=== PATIENT | female | born 1965 | race Caucasian/White ===

== ENCOUNTER 2023-02-04 04:18 | Outpatient (CLI) | payer OTHER, SELFPAY ==
[2023-02-04 10:10] LABS: Hemoglobin A1C 5.6 % (<5.7)
[2023-02-04 10:22] LABS: ALT 24 U/L (14-59); AST 19 U/L (15-37); Albumin 3.4 g/dL (3.4-5.0); Alkaline Phosphatase 59 U/L (46-116); Anion Gap 3.7 mmol/L (3-11); BUN 12 mg/dL (7-18); Bilirubin, Total 0.3 mg/dL (0.2-1.0); CO2 31.3 mmol/L (21.0-32.0); CREATININE 0.7 mg/dL (0.55-1.02); Calcium 8.9 mg/dL (8.5-10.1); Calculated LDL 117 mg/dL (<100); Chloride 106 mmol/L (98-107); Cholesterol 193 mg/dL (<200); Estimated GFR 101.44 (mL/min/1.73m2); Glucose 86 mg/dL (74-106); HDL Cholesterol 71 mg/dL (40-60); Potassium 4.4 mmol/L (3.5-5.1); Sodium 141 mmol/L (136-145); TSH (W/Ref FT4) 1.34 uIU/mL (0.36-3.74); Total Protein 7.4 g/dL (6.4-8.2); Triglyceride 25 mg/dL (<150)
== END 2023-02-04 04:19 | disposition home or self-care (01) ==
LOC: LBO 04:18
PROVIDERS: PCP Nurse Practitioner Family; Visit Provider Nurse Practitioner Family
DX: Z00.00 Encounter for general adult medical examination without abnormal findings (principal)
CPT/HCPCS: 36415; 80053; 80061; 83036; 84443

== ENCOUNTER → 2023-09-30 00:16 | Outpatient (CLI) | payer OTHER, SELFPAY ==
--- NOTE | 2023-09-30 12:19 | DI.MAMMO_ITS ---
Exam(s) MG MAMMO SCREENING EXAM: MG MAMMO SCREENING CLINICAL HISTORY: screening,z12.39 TECHNIQUE: Mammograms were interpreted according to the usual protocol including computer analysis w ith CAD system, tomosynthesis and C-view imaging. COMPARISON: MG 3D DANIELLE SCREEN BILATERAL from 12/17/2016 MG 3D DANIELLE ADDVIEW LEFT from 01/11/2017 MG 3D DANIELLE SCREEN BILATERAL from 01/12/2018 MG 3D DANIELLE SCREEN BILATERAL from 07/07/2019 MG BI MAMMO SCRN DANIELLE BILAT from 02/01/2021 MG BI MAMMO SCRN DANIELLE BILAT from 03/30/2022 FINDINGS: The breasts are composed of scattered fibroglandular densities, Breast Density category B. No suspicious masses or suspicious microcalcifications are seen. There is a biopsy marker clip in th e medial right breast. No skin thickening or abnormal axillary lymph nodes are seen. There has been no significant change from prior exams. IMPRESSION: BI-RADS Category 1, Negative mammogram Yearly screening mammography is recommended. Breast Density - Category B, scattered fibroglandular densities. A negative radiographic report should not delay biopsy if a dominant or clinically suspicious mass is present. Up to ten percent of cancers are not identified on mammography. A negative report may reinforce clinical impression. Adenosis and dense breasts may obscure an underlying neoplasm. False positive reports average 6 to 10%. Patient will receive a letter notifying them of these results.
== END ==
PROVIDERS: PCP Nurse Practitioner Family; Visit Provider Nurse Practitioner Family
DX: Z12.31 Encounter for screening mammogram for malignant neoplasm of breast (principal)
CPT/HCPCS: 77063; 77067

== ENCOUNTER 2023-11-22 15:08 | Outpatient (CLI) | payer OTHER, SELFPAY ==
[2023-11-22 13:11] LABS: HCT 38.6 % (36.0-46.0); HGB 13.5 g/dL (11.2-15.7); MCH 33.4 pg (27.0-33.0); MCV 96 fL (80-95); MPV 8.8 fL (8.0-11.0); Platelet Count 255 10^3/uL (130-400); RBC 4.04 10^6/uL (3.93-5.22); RDW 12.6 % (11.7-14.6); RDW-SD 44.3 fL; WBC 4.97 10^3/uL (4.4-10.8)
[2023-11-22 13:54] LABS: Anion Gap 7.8 mmol/L (3-11); BUN 13 mg/dL (7-18); CO2 30.2 mmol/L (21.0-32.0); CREATININE 0.7 mg/dL (0.55-1.02); Calcium 8.9 mg/dL (8.5-10.1); Chloride 104 mmol/L (98-107); Estimated GFR 100.81 (mL/min/1.73m2); Glucose 97 mg/dL (74-106); Potassium 4.2 mmol/L (3.5-5.1); Sodium 142 mmol/L (136-145); TSH (W/Ref FT4) 2.62 uIU/mL (0.36-3.74)
[2023-11-23 09:29] LABS: Hepatitis C Ab w Rflx HCV PCR Negative (Negative)
== END 2023-11-22 15:09 | disposition home or self-care (01) ==
LOC: LBO 11-29 15:08
PROVIDERS: PCP Nurse Practitioner Family; Visit Provider Nurse Practitioner Family
DX: Z00.00 Encounter for general adult medical examination without abnormal findings (principal); E78.5 Hyperlipidemia, unspecified; E03.9 Hypothyroidism, unspecified
CPT/HCPCS: 36415; 80048; 85027; 86803; 84443

== ENCOUNTER 2024-09-08 00:23 | Outpatient (CLI) | payer BC, SELFPAY ==
--- NOTE | 2024-09-08 15:02 | DI.RAD_ITS ---
Exam(s) XR KNEE LT 3V AP,LAT,MARIAMA EXAM: XR KNEE LT 3V AP,LAT,MARIAMA CLINICAL HISTORY: left knee pain,SWELLING, M25.462. TECHNIQUE: 2D digital imaging was performed. COMPARISON: No exams were available for comparison FINDINGS: 3 views There is a 3.0 x 1.0 mm calcific density adjacent to the outer aspect of the cortex of the medial fe moral condyle at the medial collateral ligament insertion site. This may represent a Whqdhczpdt-Nuppcs-pdqt avulsion at this level, age indeterminate. There is a minimal amount of increased joint fluid. There is also prominent density in the subcutane ous fat over this area which is probably hematoma. On the lateral view there is also noted a 2.5 x 2.0 mm calcific density seen in the region of the sup rapatellar bursa, possibly a loose intra-articular body. There does not appear to be an obvious oste ochondral defect at the articular surfaces. There is minimal narrowing of the medial compartment and small marginal osteophytes off the medial co mpartment. Lateral compartment unremarkable. IMPRESSION: Possible Shereen-Stieda type avulsion injury off the outer aspect of the upper medial femoral cond yle, age indeterminate. This is at the level the attachment site of the upper medial collateral liga ment upon the superior aspect of the outer aspect of the medial femoral condyle. Correlation with si te of tenderness is recommended. There does appear to be abnormal density in the medial subcutaneous fat over this area which probably represents hematoma. Small 2 mm calcific density seen in the region of the suprapatellar bursa on the lateral view, possib ly a small intra-articular loose body. Some degenerative changes are noted in the medial compartment as described above. DATA REPOSITORY: RADIATION DOSE DELIVERED:
== END 2024-09-08 00:43 ==
LOC: DI 00:24
PROVIDERS: PCP Nurse Practitioner Family; Visit Provider Nurse Practitioner Family
DX: M25.462 Effusion, left knee (principal)
CPT/HCPCS: 73562

== ENCOUNTER 2024-11-01 00:50 | Outpatient (CLI) | payer BC, SELFPAY ==
--- NOTE | 2024-11-01 07:15 | DI.MRI_ITS ---
Exam(s) MR LOWER JOINT LT WO EXAM: MR LOWER JOINT LT WO CLINICAL HISTORY: avulsion injury, ? ligament tear,swelling lt knee,m25.462. TECHNIQUE: Multiplanar multisequence MRI was performed. COMPARISON: CR XR KNEE LT 3V AP,LAT,MARIAMA from 09/08/2024 FINDINGS: BONES: There is no fracture or contusion pattern. There is a small enthesophyte at quadriceps inser tion on the patella. Smoothly marginated bony density noted at the lateral aspect of the patella whi ch may represent a calcification seen on plain films. JOINTS: A small joint effusion is present. Articular cartilage: Patellofemoral joint: Articular marked thinning of the cartilage of the lateral patellar facet exten ding down to bone with bone edema. Mild periarticular spurring. Medial femoral tibial joint: Mild periarticular spurring. Focal cartilage defect extending down to b one at the medial femoral condyle measuring 7 millimeters. No underlying bony edema. Lateral femoral tibial joint: Mild to moderate periarticular spurring. Articular cartilage is unrema rkable. LIGAMENTS/TENDONS: Anterior Cruciate: Unremarkable. Posterior Cruciate: Unremarkable. Medial Collateral: Intact. Mild surrounding fluid. Small calcification noted proximally and anteri lowell. Lateral Collateral ligament complex: Unremarkable. Extensor mechanism: Unremarkable. Medial retinaculum: Unremarkable. Lateral retinaculum: Unremarkable. Popliteus: Unremarkable. MENISCI: The medial meniscus shows an inferior surfacing horizontal tear through the posterior horn and body. The medial meniscus is somewhat peripherally displaced, consistent with degenerative changes. The lateral meniscus is unremarkable. MUSCLES: Unremarkable. SOFT TISSUES: Small Collazo's cyst. IMPRESSION: Inferior surfacing tear of the posterior horn and body of the medial meniscus. Small Collazo's cyst. 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 Focal chondral defect in the medial femoral con dyle. No evidence of ligament or tendon tear. DATA REPOSITORY:
== END 2024-11-01 01:10 ==
LOC: DI 00:50
PROVIDERS: PCP Nurse Practitioner Family; Visit Provider Nurse Practitioner Family
DX: M23.232 Derangement of other medial meniscus due to old tear or injury, left knee (principal)
CPT/HCPCS: 73721

== ENCOUNTER 2024-11-20 12:43 | Outpatient (CLI) | payer BC, SELFPAY ==
[2024-11-20 13:06] LABS: Anion Gap 3.6 mmol/L (3-11); BUN 10 mg/dL (7-18); CO2 30.4 mmol/L (21.0-32.0); CREATININE 0.7 mg/dL (0.55-1.02); Calcium 9.1 mg/dL (8.5-10.1); Calculated LDL 107 mg/dL (<100); Chloride 108 mmol/L (98-107); Cholesterol 186 mg/dL (<200); Estimated GFR 100.19 (mL/min/1.73m2); Glucose 96 mg/dL (74-106); HDL Cholesterol 73 mg/dL (>or=50); Potassium 4.3 mmol/L (3.5-5.1); Sodium 142 mmol/L (136-145); TSH (W/Ref FT4) 1.14 uIU/mL (0.36-3.74); Triglyceride 32 mg/dL (<150)
== END 2024-11-20 12:44 | disposition home or self-care (01) ==
LOC: LBO 12:43
PROVIDERS: PCP Nurse Practitioner Family; Visit Provider Nurse Practitioner Family
DX: E03.9 Hypothyroidism, unspecified (principal)
CPT/HCPCS: 36415; 80048; 80061; 84443

== ENCOUNTER 2024-12-08 01:26 | Outpatient (CLI) | payer BC, SELFPAY ==
--- NOTE | 2024-12-08 07:45 | DI.MAMMO_ITS ---
Exam(s) MAMMO SCREENING EXAM: MAMMO SCREENING CLINICAL HISTORY: screening,z12.39. TECHNIQUE: Bilateral full field digital CC and MLO mammographic images were obtained with 3D tomosyn thesis and utilizing computer aided detection (CAD). COMPARISON: Prior mammograms were reviewed. FINDINGS: There has been no significant change in the appearance and distribution of the fibroglandular tissue. There are no CAD designations. No new right breast findings. In the left breast there is an asymmetric density-possible nodule measuring 5 x 5 mm located approxim ately 2 cm in from the nipple on the MLO view. This appears to be slightly lateral of center on the CC view. Spot compression views recommended. There are no malignant-appearing microcalcification groups in this region or elsewhere in either [address] There is no significant architectural distortion nor skin thickening-retraction. IMPRESSION: 1. No radiographic evidence of malignancy in right breast. 2. Asymmetric density-possible nodule as described above in the left breast. Spot compression CC and MLO views recommended as well as breast ultrasound. BI-RADS Category 0 - Incomplete: Need additional imaging evaluation Breast Density - Category C - The breast are heterogeneously dense, which may obscure small masses. Breast density Category C or D implies that the patient has dense breast tissue. Dense breast tissue can make it harder to find cancer on a mammogram. Dense breast tissue is also associated with an incr eased risk of breast cancer. This information about the result of the mammogram report was provided to the patient to raise their awareness. Use this report when you speak with the patient about their risks for breast cancer, which includes their family history. At that time, you may recommend additional screening tests (Ultrasoun d or MRI) as these tests may add significant information. A negative radiographic report should not delay biopsy if a dominant or clinically suspicious mass is present. Up to ten percent of cancers are not identified on mammography. A negative report may reinforce clinical impression. Adenosis and dense breasts may obscure an underlying neoplasm. False positive reports average 6 to 10%. Patient will receive a letter notifying them of these results.
== END 2024-12-08 01:46 ==
LOC: DI 01:26
PROVIDERS: PCP Nurse Practitioner Family; Visit Provider Nurse Practitioner Family
DX: Z12.31 Encounter for screening mammogram for malignant neoplasm of breast (principal); R92.333 Mammographic heterogeneous density, bilateral breasts
CPT/HCPCS: 77063; 77067

== ENCOUNTER 2024-12-18 01:54 | Outpatient (CLI) | payer BC, SELFPAY ==
--- NOTE | 2024-12-18 | DI.MAMMO_ITS ---
Exam(s) MAMMO SCREEN CALL BACK UNI EXAM: MAMMO SCREEN CALL BACK UNI CLINICAL HISTORY: F/U ABNL MAMMO, R92.8,LT ASYMMETRIC DENSITY,? NODULE. TECHNIQUE: Craniocaudal and mediolateral oblique Full Field Digital Mammography views of the left br east with Computer Aided Diagnosis. COMPARISON: Comparison is made with prior examinations. FINDINGS: Mammography/Tomosynthesis: Masses/Architectural Distortion: The area of concern does not persist on the additional views. No constantino spicious masses or areas of architectural distortion are present. Microcalcifictions: No suspicious pleomorphic-type are seen. Skin Thickening/Nipple Retraction: None. IMPRESSION: 1. No evidence of malignancy is noted. 2. Unless there is more urgent need, follow-up screening mammography is recommended, as per [place] [employer] guidelines. 3. The findings were discussed with the patient on the date of the examination. BI-RADS Category 1 - Negative Breast Density - Category C - The breast are heterogeneously dense, which may obscure small masses. Breast density Category C or D implies that the patient has dense breast tissue. Dense breast tissue can make it harder to find cancer on a mammogram. Dense breast tissue is also associated with an incr eased risk of breast cancer. This information about the result of the mammogram report was provided to the patient to raise their awareness. Use this report when you speak with the patient about their risks for breast cancer, which includes their family history. At that time, you may recommend additional screening tests (Ultrasoun d or MRI) as these tests may add significant information. A negative radiographic report should not delay biopsy if a dominant or clinically suspicious mass is present. Up to ten percent of cancers are not identified on mammography. A negative report may reinforce clinical impression. Adenosis and dense breasts may obscure an underlying neoplasm. False positive reports average 6 to 10%. Patient will receive a letter notifying them of these results.
== END 2024-12-18 02:14 ==
PROVIDERS: PCP Nurse Practitioner Family; Visit Provider Nurse Practitioner Family
DX: Z12.31 Encounter for screening mammogram for malignant neoplasm of breast (principal); R92.8 Other abnormal and inconclusive findings on diagnostic imaging of breast; R92.333 Mammographic heterogeneous density, bilateral breasts
CPT/HCPCS: 77063; 77067